=== PATIENT | male | born 1970 | race Hispanic/Latino ===

== ENCOUNTER 2018-04-29 12:58 | Emergency (ER) | payer OTHER ==
[2018-04-29] MEDS ORDERED: ONDANSETRON 4 MG/2 ML VIAL ONE (14:40)
[2018-04-29] MEDS ORDERED: NA CHLORIDE 0.9% 1,000 ML ONE (14:40)
[2018-04-29 15:35] LABS: Absolute Lymphocytes (CBC) 1.5 K/uL (0.7-4.9); Absolute Monocytes 0.5 K/uL (0.1-1.3); Absolute Neutrophil 4.8 K/uL (1.8-8.0); Basophils % 0.1 % (0-1.3); Eosinophils % 0.4 % (0-4.4); Hematocrit 45.1 % (39.6-49.0); Lymphocytes % 21.4 % (15.3-44.8); MCH 31.2 pg (27.0-35.0); MCV 93.1 fL (80-100); MPV 7.7 fL (7.6-11.3); Monocytes % 7.7 % (3.3-12.3); RBC Red Blood Cell Count 4.84 M/uL (4.33-5.43)
[2018-04-29 15:48] LABS: Urine Blood TRACE (NEG); Urine Glucose NEGATIVE (NEG); Urine Protein TRACE (NEG)
[2018-04-29 16:06] LABS: ALT/SGPT 37 U/L (12-78); AST/SGOT 21 U/L (15-37); Albumin 3.8 g/dL (3.4-5.0); Alkaline Phosphatase 91 U/L (45-117); BUN Blood Urea Nitrogen 13 mg/dL (7-18); Bicarbonate 29 mmol/L (21-32); Bilirubin Direct 0.4 mg/dL (0-0.2); Bilirubin Total 2.4 mg/dL (0.2-1.0); Glucose Level 107 mg/dL (74-106); Lipase 94 U/L (73-393); Protein, Total 7.6 g/dL (6.4-8.2); Sodium Level 140 mmol/L (136-145)
--- NOTE | 2018-04-29 16:26 | ER ---
Nurse's Notes [facility] Name: Gavin Hernandez Age: 47 yrs Sex: Male : 1970 Arrival Date: 04/29/2018 Time: 13:00 Bed 26 Private MD: Dayana Mcarthur Diagnosis: Gastroenteritis Presentation: 04/29 13:31 Presenting complaint: Patient states: N/V/D since yesterday. Transition of care: aj patient was not received from another setting of care. Onset of symptoms was April 28, 2018. Risk Assessment: Do you want to hurt yourself or someone else? Patient reports no desire to harm self or others. Initial Sepsis Screen: Does the patient meet any 2 criteria? No. Patient's initial sepsis screen is negative. Does the patient have a suspected source of infection? No. Patient's initial sepsis screen is negative. Care prior to arrival: None. 13:31 Method Of Arrival: Ambulatory 13:31 Acuity: CHRISTINA 3 aj Triage Assessment: 13:33 General: Appears in no apparent distress. comfortable, Behavior is calm, cooperative, aj appropriate for age. Pain: Complains of pain in abdomen. Neuro: Level of Consciousness is awake, alert, obeys commands, Oriented to person, place, time, situation, Appropriate for age. Respiratory: Airway is patent Respiratory effort is even, unlabored, Respiratory pattern is regular, symmetrical. GI: Reports diarrhea, nausea, vomiting. Derm: Skin is intact, is healthy with good turgor, Skin is pink, warm \T\ dry. normal. Historical: - Allergies: 13:33 No Known Allergies; aj - Home Meds: 13:33 unknown cholesterol med [Active]; aj - PMHx: 13:33 Hyperlipidemia; aj - PSHx: 13:33 None; aj - Immunization history:: Adult Immunizations up to date. - Social history:: Smoking status: Patient/guardian denies using tobacco. - Ebola Screening: : Patient negative for fever greater than or equal to 101.5 degrees Fahrenheit, and additional compatible Ebola Virus Disease symptoms Patient denies exposure to infectious person Patient denies travel to an Ebola-affected area in the 21 days before illness onset No symptoms or risks identified at this time. Screenin:47 Abuse screen: Denies threats or abuse. Nutritional screening: No deficits noted. tl3 Tuberculosis screening: No symptoms or risk factors identified. Fall Risk None identified. Assessment: 14:47 General: Appears uncomfortable, well groomed, well developed, well nourished, Behavior tl3 is calm, cooperative, appropriate for age. Pain: Complains of pain in abdomen. Neuro: No deficits noted. Level of Consciousness is awake, alert, obeys commands, Oriented to person, place, time, situation, Appropriate for age. Cardiovascular: Patient's skin is warm and dry. Respiratory: Airway is patent Respiratory effort is even, unlabored, Respiratory pattern is regular, symmetrical, Breath sounds are clear bilaterally. GI: Abdomen is round. GI: Reports diarrhea, nausea, vomiting, since yesterday. : No deficits noted. Urine is clear. EENT: No deficits noted. No signs and/or symptoms were reported regarding the EENT system. Derm: No deficits noted. No signs and/or symptoms reported regarding the dermatologic system. Musculoskeletal: No deficits noted. No signs and/or symptoms reported regarding the musculoskeletal system. 15:58 Reassessment: Patient appears in no apparent distress at this time. No changes from tl3 previously documented assessment. Patient and/or family updated on plan of care and expected duration. Pain level reassessed. Patient is alert, oriented x 3, equal unlabored respirations, skin warm/dry/pink. no needs at this time Patient states feeling better. Vital Signs: 13:33 BP 120 / 72; Pulse 91; Resp 16; Temp 99.4; Pulse Ox 97% on R/A; Weight 80.74 kg; Height aj 5 ft. 6 in. (167.64 cm); 14:47 BP 123 / 77; Pulse 90; Resp 18; Pulse Ox 96% on R/A; tl3 15:55 BP 115 / 82; Pulse 88; Resp 18; Pulse Ox 96% on R/A; mg2 16:37 BP 117 / 80; Pulse 85; Resp 17; Pulse Ox 100% on R/A; Pain 0/10; mg2 13:33 Body Mass Index 28.73 (80.74 kg, 167.64 cm) aj ED Course: 13:00 Patient arrived in ED. rg4 13:00 Dayana Mcarthur MD is Private Physician. rg4 13:32 Triage completed. aj 13:33 Arm band placed on left wrist. Patient placed in an exam room. aj 13:44 [facility] jr8 13:44 Pancho Cruz MD is Attending Physician. jr8 14:33 Amberly Cardoza, RN is Primary Nurse. tl3 14:47 Patient has correct armband on for positive identification. Bed in low position. Call tl3 light in reach. Side rails up X 1. Pulse ox on. NIBP on. 14:47 No provider procedures requiring assistance completed. Inserted saline lock: 20 gauge tl3 in right antecubital area, using aseptic technique. Blood collected. 16:24 Nurse Practitioner and/or Physician Lead Producer to see patient. Anton at bedside tl3 discussing POC Pt visited by. 16:25 Dayana Mcarthur MD is Referral Physician. jr8 16:36 IV discontinued, intact, bleeding controlled, No redness/swelling at site. Pressure mg2 dressing applied. Administered Medications: 14:46 Drug: NS 0.9% 1000 ml Route: IV; Rate: 1000 ml; Site: right antecubital; Delivery: tl3 Primary tubing; 15:59 Follow up: IV Status: Completed infusion; IV Intake: 1000ml tl3 14:46 Drug: Zofran 4 mg Route: IVP; Infused Over: 2 mins; Site: right antecubital; tl3 15:59 Follow up: Response: No adverse reaction tl3 Intake: 15:59 IV: 1000ml; Total: 1000ml. tl3 Outcome: 16:26 Discharge ordered by . jr8 16:36 Discharged to home ambulatory, with family. mg2 16:36 Condition: stable 16:36 Discharge instructions given to patient, family, Instructed on discharge instructions, follow up and referral plans. medication usage, Demonstrated understanding of instructions, follow-up care, medications, Prescriptions given X 2. 16:37 Patient left the ED. mg2 Signatures: Lisa Mcmahon RN Anton Bates PA PA jr8 Maria Luisa Pisano rg4 Amberly Cardoza, RN RN tl3 Heath Veras RN RN mg2
--- NOTE | 2018-04-29 16:26 | EDPHYS ---
Physician Documentation [facility] Name: Gavin Hernandez Age: 47 yrs Sex: Male : 1970 Arrival Date: 04/29/2018 Time: 13:00 Bed 26 Private MD: Dayana Mcarthur ED Physician Pancho Cruz HPI: 04/29 13:45 This 47 yrs old Male presents to ER via Ambulatory with complaints of jr8 Vomiting/Diarrhea, Abdominal Pain, Fever. 13:45 The patient presents to the emergency department with nausea, vomiting, diarrhea, jr8 abdominal pain. Onset: The symptoms/episode began/occurred acutely, yesterday. Possible causes: bad food exposure. The symptoms are aggravated by food , The symptoms are alleviated by nothing. Associated signs and symptoms: The patient has no apparent associated signs or symptoms. Severity of symptoms: At their worst the symptoms were moderate in the emergency department the symptoms are unchanged. The patient has not experienced similar symptoms in the past. The patient has not recently seen a physician. Stated that after lunch yesterday had sudden onset n/v/d with abdominal cramping . Historical: - Allergies: 13:33 No Known Allergies; aj - Home Meds: 13:33 unknown cholesterol med [Active]; aj - PMHx: 13:33 Hyperlipidemia; aj - PSHx: 13:33 None; aj - Immunization history:: Adult Immunizations up to date. - Social history:: Smoking status: Patient/guardian denies using tobacco. - Ebola Screening: : Patient negative for fever greater than or equal to 101.5 degrees Fahrenheit, and additional compatible Ebola Virus Disease symptoms Patient denies exposure to infectious person Patient denies travel to an Ebola-affected area in the 21 days before illness onset No symptoms or risks identified at this time. ROS: 16:25 Eyes: Negative for injury, pain, redness, and discharge, ENT: Negative for injury, jr8 pain, and discharge, Neck: Negative for injury, pain, and swelling, Cardiovascular: Negative for chest pain, palpitations, and edema, Respiratory: Negative for shortness of breath, cough, wheezing, and pleuritic chest pain, Back: Negative for injury and pain, MS/Extremity: Negative for injury and deformity, Skin: Negative for injury, rash, and discoloration, Neuro: Negative for headache, weakness, numbness, tingling, and seizure. 16:25 Abdomen/GI: Positive for nausea, vomiting, and diarrhea, abdominal cramps, Negative for abdominal distension, anorexia, dysphagia, hematemesis, black/tarry stool, rectal pain, rectal bleeding, bowel incontinence, flatulence. Exam: 16:25 Eyes: Pupils equal round and reactive to light, extra-ocular motions intact. Lids and jr8 lashes normal. Conjunctiva and sclera are non-icteric and not injected. Cornea within normal limits. Periorbital areas with no swelling, redness, or edema. ENT: Nares patent. No nasal discharge, no septal abnormalities noted. Tympanic membranes are normal and external auditory canals are clear. Oropharynx with no redness, swelling, or masses, exudates, or evidence of obstruction, uvula midline. Mucous membranes moist. Neck: Trachea midline, no thyromegaly or masses palpated, and no cervical lymphadenopathy. Supple, full range of motion without nuchal rigidity, or vertebral point tenderness. No Meningismus. Cardiovascular: Regular rate and rhythm with a normal S1 and S2. No gallops, murmurs, or rubs. Normal PMI, no JVD. No pulse deficits. Respiratory: Lungs have equal breath sounds bilaterally, clear to auscultation and percussion. No rales, rhonchi or wheezes noted. No increased work of breathing, no retractions or nasal flaring. Abdomen/GI: Soft, non-tender, with normal bowel sounds. No distension or tympany. No guarding or rebound. No evidence of tenderness throughout. Back: No spinal tenderness. No costovertebral tenderness. Full range of motion. Skin: Warm, dry with normal turgor. Normal color with no rashes, no lesions, and no evidence of cellulitis. MS/ Extremity: Pulses equal, no cyanosis. Neurovascular intact. Full, normal range of motion. Neuro: Awake and alert, GCS 15, oriented to person, place, time, and situation. Cranial nerves II-XII grossly intact. Motor strength 5/5 in all extremities. Sensory grossly intact. Cerebellar exam normal. Normal gait. Vital Signs: 13:33 BP 120 / 72; Pulse 91; Resp 16; Temp 99.4; Pulse Ox 97% on R/A; Weight 80.74 kg; Height aj 5 ft. 6 in. (167.64 cm); 14:47 BP 123 / 77; Pulse 90; Resp 18; Pulse Ox 96% on R/A; tl3 15:55 BP 115 / 82; Pulse 88; Resp 18; Pulse Ox 96% on R/A; mg2 16:37 BP 117 / 80; Pulse 85; Resp 17; Pulse Ox 100% on R/A; Pain 0/10; mg2 13:33 Body Mass Index 28.73 (80.74 kg, 167.64 cm) aj MDM: 13:44 Patient medically screened. [facility] 16:25 Data reviewed: vital signs, nurses notes, lab test result(s), and as a result, I will jr8 discharge patient. Data interpreted: Pulse oximetry: on room air is 96 %. Interpretation: normal. Counseling: I had a detailed discussion with the patient and/or guardian regarding: the historical points, exam findings, and any diagnostic results supporting the discharge/admit diagnosis, lab results, the need for outpatient follow up, a family practitioner, to return to the emergency department if symptoms worsen or persist or if there are any questions or concerns that arise at home. Response to treatment: the patient's symptoms have markedly improved after treatment, patient is well hydrated. 04/29 13:44 Order name: Basic Metabolic Panel [facility] 04/29 13:44 Order name: CBC with Diff [facility] 04/29 13:44 Order name: Creatinine for Radiology [facility] 04/29 13:44 Order name: Hepatic Function [facility] 04/29 13:44 Order name: Lipase [facility] 04/29 15:39 Order name: CBC with Automated Diff; Complete Time: 15:41 [facility] 04/29 13:44 Order name: IV Saline Lock; Complete Time: 14:33 [facility] 04/29 13:44 Order name: Labs collected and sent; Complete Time: 14:33 [facility] 04/29 15:51 Order name: Urine Dipstick-Ancillary; Complete Time: 16:01 [facility] 04/29 16:07 Order name: Basic Metabolic Panel; Complete Time: 16:17 [facility] 04/29 16:07 Order name: Liver (Hepatic) Function; Complete Time: 16:17 [facility] 04/29 16:07 Order name: Lipase; Complete Time: 16:17 EDMS Administered Medications: 14:46 Drug: NS 0.9% 1000 ml Route: IV; Rate: 1000 ml; Site: right antecubital; Delivery: tl3 Primary tubing; 15:59 Follow up: IV Status: Completed infusion; IV Intake: 1000ml tl3 14:46 Drug: Zofran 4 mg Route: IVP; Infused Over: 2 mins; Site: right antecubital; tl3 15:59 Follow up: Response: No adverse reaction tl3 Disposition: 16:51 Co-signature as Attending Physician, Pancho Cruz MD. rn Disposition: 04/29/18 16:26 Discharged to Home. Impression: Gastroenteritis. - Condition is Stable. - Discharge Instructions: Viral Gastroenteritis, Adult. - Prescriptions for Bentyl 20 mg Oral Tablet - take 1 tablet by ORAL route every 6 hours As needed; 20 tablet. Zofran 4 mg Oral Tablet - take 1 tablet by ORAL route every 12 hours As needed; 20 tablet. - Medication Reconciliation Form, Thank You Letter, Antibiotic Education, Prescription Opioid Use form. - Follow up: Dayana Mcarthur MD; When: 48 Hours; Reason: Recheck today's complaints, Continuance of care, Re-evaluation by your physician. - Problem is new. - Symptoms have improved. Signatures: Dispatcher [employer] Lisa Mcmullen, RN RN Pancho Eric MD MD rn Roszak, Josh, PA PA jr8 Amberly Cardoza RN RN tl3 Heath Veras RN RN mg2 Corrections: (The following items were deleted from the chart) 16:37 16:26 04/29/2018 16:26 Discharged to Home. Impression: Gastroenteritis. Condition is mg2 Stable. Forms are Medication Reconciliation Form, Thank You Letter, Antibiotic Education, Prescription Opioid Use. Follow up: Dayana Mcarthur; When: 48 Hours; Reason: Recheck today's complaints, Continuance of care, Re-evaluation by your physician. Problem is new. Symptoms have improved. jr8
== END 2018-04-29 16:37 | disposition home or self-care (01) ==
LOC: ER 12:58
DX: K52.9 Noninfective gastroenteritis and colitis, unspecified (principal)
CPT/HCPCS: 36415; 80048; 80076; 81003; 83690; 85025; 96361; 96374; 99284; J2405; J7030

== ENCOUNTER 2021-11-04 16:02 | Emergency (ER) | payer OTHER ==
--- OUTSIDE RECORDS SUMMARY | 2021-11-04 16:06 | XMS REPORT | Continuity of Care Document ---
:1970 Author Organization [facility] t Address [address] [place] [address] Care Team Providers Name Role Phone Pcp, Does Not Have A Primary Care Physician Fiordaliza Mcarthur Attending Clinician Unavailable RIDDLE Attending Clinician Unavailable [place] ACNP Attending Clinician Skylar MCDANIEL Attending Clinician Unavailable Skylar Silva Attending Clinician Doctor Unassigned, Name Attending Clinician Unavailable Skylar MCDANIEL Admitting Clinician Unavailable Payers Payer Name Policy Type Policy Number Effective Date Expiration Date [facility] [id number] 2016 CHOICE 00:00:00 Problems Condition Condition Condition Status Onset Resolution Last Treating Co mments Source Name Details Category Date Date Treatment Clinician Date Left groin Left groin Disease Active U nivers pain pain 1-14 ity of 00:00: [address] No known No known Disease Unive rs active active ity of problems problems [facility] Allergies, Adverse Reactions, Alerts Allergy Allergy Status Severity Reaction(s) Onset Inactive Treating Comm ents Source Name Type Date Date Clinician NO KNOWN Drug Active Univers ALLERGIE Class ity of S [facility] Social History Social Habit Start Date Stop Date Quantity Comments Source Exposure to Not sure [facility] SARS-CoV-2 (event) Medica l Branch Sex Assigned At [birth year] [facility] 00:00:00 00:00:00 Medical Branch Smoking Status Start Date Stop Date Source Unknown if ever smoked [facility] Medications Ordered Filled Start Stop Current Ordering Indication Dosage Frequency Signature Comments Components Source Medication Medication Date Date Medication? Clinician (SIG) Name Name ibuprofen No 600mg 600 mg, Uni vers (IBU) 08-25 Oral, ity of tablet 600 03:30: 02:50 ONCE, 1 Alexsander as mg 00 :00 dose, On Medical Fri Branch 08/24/21 at 2130, RAMIRO traMADoL 2020-08- No 4647 50mg Take 1 Univer s (ULTRAM) 50 2-08 12-16 tablet by it y of mg tablet 00:00: 05:59 mouth [place] 00 :00 every 6 Medical (six) Branch hours as needed for Pain (scale 7-10) for up to 7 days. Indication s: acute pain Triamcinolo Triamcinolo Yes Na Mcarthur [address] [facility] ne ne 01-30 applicatio [facility] - Acetonide Acetonide 00:00: n to Mem oria 00 affected l area Outpati ent Clinics traMADOL 2016-08 Yes 50mg Take 1 Univers (ULTRAM) 50 2-13 tablet by ity of mg tablet 00:00: mouth [place] 00 every 6 Medical (six) Branch hours as needed for Pain (scale 7-10). traMADOL 2016-08 Yes 50mg Take 1 Univers (ULTRAM) 50 2-13 tablet by ity of mg tablet 00:00: mouth [place] 00 every 6 Medical (six) Branch hours as needed for Pain (scale 7-10). traMADOL 2016-08 Yes 50mg Take 1 Univers (ULTRAM) 50 2-13 tablet by ity of mg tablet 00:00: mouth [place] 00 every 6 Medical (six) Branch hours as needed for Pain (scale 7-10). cyclobenzap Yes 10mg Take 1 Univ ers rine 8-01 tablet by ity of (FLEXERIL) 00:00[place] 10 mg 00 (three) Medical tablet times Branch daily. ibuprofen Yes 600mg Take 1 Unive rs (MOTRIN) 8-01 tablet by ity of 600 mg 00:00: mouth [place] tablet 00 every 6 Medical (six) Branch hours as needed for Pain (scale 4-6). cyclobenzap 0 Yes 10mg Take 1 Univ ers rine 8-01 tablet by ity of (FLEXERIL) 00:00[place] 10 mg 00 (three) Medical tablet times Branch daily. ibuprofen 0 Yes 600mg Take 1 Unive rs (MOTRIN) 8-01 tablet by ity of 600 mg 00:00: mouth [place] tablet 00 every 6 Medical (six) Branch hours as needed for Pain (scale 4-6). cyclobenzap 0 Yes 10mg Take 1 Univ ers rine 8-01 tablet by ity of (FLEXERIL) 00:00: mouth [place] 10 mg 00 (three) Medical tablet times Branch daily. ibuprofen 0 Yes 600mg Take 1 Unive rs (MOTRIN) 8-01 tablet by ity of 600 mg 00:00: mouth [place] tablet 00 every 6 Medical (six) Branch hours as needed for Pain (scale 4-6). Simvastatin Simvastatin Yes Na Mcarthur TAKE ONE [facility] TABLET BY [facility] - MOUTH ONCE Memoria DAILY l [facility] ent Clinics Claritin Claritin Yes Na Mcarthur [address] [facility] Flonase Flonase Yes Na Mcarthur [address] [facility] each [facility] - nostril Memoria l [facility]ics Azelastine Azelastine Yes Na Mcarthur [address] [facility] HCl HCl into [facility] - affected Memoria eye [facility] ent [facility] Simvastatin Simvastatin Yes Na Mcarthur TAKE ONE [facility] TABLET BY [facility] - MOUTH ONCE Memoria DAILY l [facility] ent Clinics Claritin Claritin Yes Na Mcarthur [address] [facility]ics Immunizations Ordered Filled Immunization Date Status Comments [facility] e Immunization Name Name Afluria single dose Afluria single dose 2019-04-[address] [facility] 00:00[facility]00 [facility] Vital Signs Vital Name Observation Time Observation Value Comments Source Heart rate 2021-08-25 02:43:00 97 /min [facility] Medical Branch Oxygen saturation in 2021-08-25 02:43:00 99 /min [facility] Arterial blood by [facility] Pulse oximetry Branch Systolic blood 2021-08-25 02:31:00 137 mm[Hg] Univer sity of pressure [facility] Diastolic blood 2021-08-25 02:31:00 89 mm[Hg] Unive rsity of pressure [facility] Body temperature 2021-08-25 02:08:00 37.28 [facility] Respiratory rate 2021-08-25 02:08:00 18 /min Univ ersity of [facility] Body height 2021-08-25 02:08:00 167.6 cm Universi ty of [facility] Body weight 2021-08-25 02:08:00 83.008 kg Universi ty of [facility] BMI 2021-08-25 02:08:00 29.54 kg/m2 Universi ty of [facility] Respiratory rate 2021-07-19 00:31:00 18 /min Univ ersity of [facility] Body height 2021-07-19 00:31:00 165.1 cm Universi ty of [facility] Body weight 2021-07-19 00:31:00 80.74 kg Universi ty of [facility] BMI 2021-07-19 00:31:00 29.62 kg/m2 [facility]i ty [facility] [place] [facility] Oxygen saturation in 2021-07-19 00:31:00 99 /min [facility] Arterial blood by [facility] Pulse oximetry Branch Systolic blood 2021-07-19 00:31:00 156 mm[Hg] Univer sity of [facility] Diastolic blood 2021-07-19 00:31:00 100 mm[Hg] Unive rsity of [facility] Heart rate 2021-07-19 00:31:00 104 /min Universi ty of [facility] Body temperature 2021-07-19 00:31:00 36.72 [facility] Procedures Procedure Date / Time Performed Performing Clinician Sour e CONSENT/REFUSAL FOR 2021-08-25 02:00:55 [facility], [facility] Branch TREATMENT XR FEMUR 2 VW LEFT 2021-07-19 01:10:42 Oneal Mcadniel Universi ty [facility] XR PELVIS <3 VW 2021-07-19 01:10:42 Oneal [facility] CONSENT/REFUSAL FOR 2021-07-19 00:20:10 Doctor Unassigned, No [facility] AND Name Medical Branch TREATMENT NOTICE OF PRIVACY 2021-07-19 00:19:49 Doctor Unassigned, No Univ [facility] PRACTICES Name Medical Branch Encounters Start End Encounter Admission Attending Care Care Encounter Source Date/Time Date/Time Type Type Clinicians Facility Department ID 2021-09-11 Outpatient Mcarthur, Na STLMLC [facility] [id number] [facility] 09:22[facility]01 [facility] 2021-09-05 Outpatient Mcarthur, Na STLMLC STLMLC [id number] [facility] 14:38:51 [facility] 2021-09-05 Outpatient Mcarthur, Na STLMLC STLMLC [id number] 14:30:53 [facility] 2021-09-05 Outpatient Mcarthur, Na STLMLC STLMLC [id number] [facility] 14:30:06 [facility] 2021-09-05 Outpatient Mcarthur, Na STLMLC STLMLC [id number] [facility] 13:47:07 [id number] [facility] 2021-09-05 Outpatient Mcarthur, Na STLMLC STLMLC [id number] [facility] 13:21:01 [id number] [facility] 2021-09-05 Outpatient Mcarthur, Na STLMLC STLMLC [id number] [facility] [address] 12:47:23 [id number] [facility] 2021-09-05 Outpatient Mcarthur, Na STLMLC STLMLC [id number] [facility] 12:46:31 [id number] [facility] 2021-09-05 Outpatient Mcarthur, Na STLMLC STLMLC [id number] [facility] 11:27:28 [id number] [facility] 2021-09-05 Outpatient Mcarthur, Na STLMLC STLMLC [id number] 11:17:23 [id number] [facility] 2021-09-242021-09-24 ambulatory [facility]LMLC [facility] [id number] [facility] 2021-09-10 2021-09-10 ambulatory [facility]LMLC [facility] [id number] [facility] 2021-08-27 2021-08-27 ambulatory [facility]MLC [facility] [id number] [facility] 2021-08-24 2021-08-24 Emergency X RIDDLE, [facility] ERT [id number] Univers 20:10:00 22:00:00 GIOVANY it y [facility] 2021-08-24 2021-08-24 Emergency [place], [facility] [id number] Univers 20:10:00 22:00:00 Giovany ESCOTO [id number] [facility] [id number] [facility] [id number] [address] 2021-08-24 2021-08-24 ambulatory STLMLC [facility] [id number] [facility] 2021-08-15 2021-08-15 ambulatory [facility]LMLC [facility] [id number] [facility] 2021-08-14 2021-08-14 ambulatory [facility]LMLC [facility] [id number] [facility] 2021-07-18 2021-07-18 Emergency X VIOLETA, [facility] ERT [id number] Univers 18:33:00 22:13:00 ONEAL ity [facility] 2021-07-18 2021-07-18 [facility] [id number] Univers 18:33:00 22:13:00 Oneal ESCOTO [id number] [id number] [facility] [phone] [facility] 084 Branch 2021-07-18 2021-07-18 Orders Doctor TANK [id number] Univers 00:00:00 00:00:00 Only Unassigned, JOSY [id number] ity of [place] [facility] [id number] [facility] [id number] [facility] 009 Branch 2021-06-08 2021-06-08 Outpatient [facility]LMLC [facility] [id number] [facility] 2021-02-16 2021-02-16 Outpatient [facility] [id number] [facility] 2021-02-08 2021-02-08 Outpatient [facility]C [facility] [id number] [facility] 2020-11-09 2020-11-09 Outpatient STLC [facility] [id number] [facility] 2020-02-01 2020-02-01 [facility] [id number] [address] 22:23:00 22:23:00 [place] [employer] [facility] - [facility] Medicine Outpati ent Clinics 2020-01-31 2020-01-31 [facility] [id number] 16:20:00 16:20:00 [place] [employer] Luke [facility] - [facility] Medicine Outpati ent Clinics 2020-01-31 2020-01-31 [facility] [id number] 15:16:00 15:16:00 [place] [employer] Luke s - Drive [facility] Medicine Outpati ent Clinics 2019-07-27 2019-07-27 [facility] [id number] 15:20:00 15:20:00 [place] [employer] s - [address] [facility] Medicine Outpati ent Clinics 2019-04-26 2019-04-26 [facility] [id number] 15:20:00 15:20:[address] Luke [facility] - [address] [facility] 2018-11-04 2018-11-04 Outpatient Timi Peter [id number] [facility] 15:15:00 15:15:00 t [facility] ent Clinics Results This patient has no known results.
[2021-11-04] MEDS ORDERED: KETOROLAC 30 MG/ML INJ ONE (17:44)
[2021-11-04] MEDS ORDERED: NA CHLORIDE 0.9% 1,000 ML ONE (17:44)
[2021-11-04 17:52] LABS: Urine Blood Trace-intact (Negative); Urine Glucose Negative (Negative); Urine Protein Negative (Negative); Urine Specific Gravity 1.025 (1.005-1.030); Urine pH 6.5 (5.0-7.0)
[2021-11-04 17:59] LABS: Absolute Lymphocytes (CBC) 2.1 K/uL (0.7-4.9); Hematocrit 44.7 % (39.6-49.0); Lymphocytes % 33.9 % (15.3-44.8); MPV 7.8 fL (7.6-11.3); RBC Red Blood Cell Count 4.83 M/uL (4.33-5.43)
[2021-11-04 18:04] LABS: Urine Bacteria <20 /HPF (NONE SEEN); Urine RBC <5 /HPF (NONE SEEN)
--- NOTE | 2021-11-04 18:13 | RAD REPORT ---
EXAM DESCRIPTION: CT - Abdomen Pelvis W Contrast - 11/04/2021 5:56 pm CLINICAL HISTORY: Abdominal pain/left groin pain COMPARISON: 2013 TECHNIQUE: Computed axial tomography of the abdomen pelvis was obtained. 100 cc Isovue-300 was admin istered intravenously. Oral contrast was not requested which limits evaluation of bowel. All CT scans are performed using dose optimization technique as appropriate and may include automated exposure control or mA/KV adjustment according to patient size. FINDINGS: The liver, spleen, pancreas, adrenal and kidneys appear unremarkable. There is no evidence of diverticulitis. Normal appendix. Small right inguinal hernia. Large left inguinal hernia contains fat Small umbilical hernia IMPRESSION: Large left inguinal hernia
[2021-11-04 18:15] LABS: ALT/SGPT 44 U/L (12-78); AST/SGOT 23 U/L (15-37); Albumin 3.9 g/dL (3.4-5.0); Alkaline Phosphatase 108 U/L (45-117); BUN Blood Urea Nitrogen 13 mg/dL (7-18); Bicarbonate 27 mmol/L (21-32); Bilirubin Total 1.5 mg/dL (0.2-1.0); Glucose Level 101 mg/dL (74-106); Lipase 113 U/L (73-393); Potassium 3.9 mmol/L (3.5-5.1); Protein, Total 7.6 g/dL (6.4-8.2); Sodium Level 140 mmol/L (136-145)
--- NOTE | 2021-11-04 18:39 | RAD REPORT ---
EXAM DESCRIPTION: US - Scrotum Testicles - 11/04/2021 5:28 pm CLINICAL HISTORY: Testicular pain COMPARISON: None FINDINGS: Right testicle measures5.2 x 1.8 x 2.4centimeters. Echotexture is homogeneous. Normal bloo d flow Left testicle measures 4.3 x 2.5 x 3.3 centimeters. Echotexture is homogeneous. Normal blood flow The epididymides are normal in size and echotexture. Normal blood flow is seen. Small to moderate right and small left hydroceles Large left inguinal hernia containing fat IMPRESSION: Large left inguinal hernia containing fat Small to moderate right and small left hydroceles
--- NOTE | 2021-11-04 19:06 | EDPHYS ---
Physician Documentation [facility] Name: Gavin Hernandez Age: 50 yrs Sex: Male : 1970 Arrival Date: 11/04/2021 Time: 16:05 Bed 16 Private MD: ED Physician Shekhar Hannah HPI: 11/04 16:50 This 50 yrs old Male presents to ER via Ambulatory with complaints of Groin cp Pain. 16:50 The patient presents with swelling, of both inguinal areas, tenderness, of both cp inguinal areas. Onset: The symptoms/episode began/occurred 2 month(s) ago. Associated signs and symptoms: Pertinent positives: right testicle pain, Pertinent negatives: constipation, diarrhea, dysuria, fever, vomiting. Severity of symptoms: in the emergency department the symptoms are unchanged, despite home interventions. 16:50 Spouse translating during interview. Reports increasing pain and swelling to bilateral cp groin area with left worse than right since August. Patient denies injury and/or lifting heavy object prior to pain. Patient's work requires frequent and/or heavy lifting. Historical: - Allergies: 16:20 No Known Allergies; ab2 - PMHx: 16:20 Hyperlipidemia; ab2 - PSHx: 16:20 None; ab2 - Immunization history:: Adult Immunizations up to date. - Social history:: Smoking status: Patient denies any tobacco usage or history of. ROS: 17:00 Constitutional: Negative for body aches, chills, fever, poor PO intake. cp 17:00 Eyes: Negative for injury, pain, redness, and discharge. cp 17:00 ENT: Negative for drainage from ear(s), ear pain, sore throat, difficulty swallowing, difficulty handling secretions. 17:00 Cardiovascular: Negative for chest pain. 17:00 Respiratory: Negative for cough, shortness of breath, wheezing. 17:00 Abdomen/GI: Negative for abdominal pain, nausea, vomiting, and diarrhea. 17:00 Back: Negative for pain at rest, pain with movement, radiated pain. 17:00 : Positive for testicular pain swelling and pain bilateral groin area, Negative for urinary symptoms. 17:00 Neuro: Negative for altered mental status, headache, numbness, weakness. 17:00 All other systems are negative. Exam: 17:05 Constitutional: The patient appears in no acute distress, alert, awake, comfortable, cp non-toxic, well developed, well nourished. 17:05 Head/Face: Normocephalic, atraumatic. cp 17:05 Eyes: Periorbital structures: appear normal, Conjunctiva: normal, no exudate, no injection, Sclera: no appreciated abnormality, Lids and lashes: appear normal, bilaterally. 17:05 ENT: External ear(s): are unremarkable, Nose: is normal, Mouth: is normal. 17:05 Neck: ROM/movement: is normal, is supple, without pain, no range of motions limitations. 17:05 Chest/axilla: Inspection: normal. 17:05 Cardiovascular: Rate: normal, Rhythm: regular. 17:05 Respiratory: the patient does not display signs of respiratory distress, Respirations: normal, no use of accessory muscles, no retractions, labored breathing, is not present, Breath sounds: are clear throughout, no decreased breath sounds, no stridor, no wheezing. 17:05 Abdomen/GI: Inspection: abdomen appears normal, Bowel sounds: active, all quadrants, Palpation: abdomen is soft and non-tender, in all quadrants. 17:05 : Male external genitalia: swelling, is noted in both inguinal areas, tenderness, of the right testicle is noted, is palpated in both inguinal areas, that is mild, Sexual behavior: the patient is sexually active, and reports a single partner. 17:05 Skin: cellulitis, is not appreciated, no rash present. Vital Signs: 16:17 BP 131 / 91; Pulse 87; Resp 17; Temp 98.1(TE); Pulse Ox 99% on R/A; Weight 83.01 kg; ab2 Height 5 ft. 6 in. (167.64 cm); Pain 10/10; 17:30 BP 141 / 85; Pulse 85; Resp 17; Temp 98.1; Pulse Ox 99% ; bp 18:30 BP 129 / 88; Pulse 82; Resp 16; Pulse Ox 99% ; bp 16:17 Body Mass Index 29.54 (83.01 kg, 167.64 cm) ab2 MDM: 16:30 Patient medically screened. cp 17:00 Differential diagnosis: nonspecific abdominal pain, UTI, urinary retention, cp prostatitis, urethritis, hernia, incarcerated hernia, testicular torsion. 19:05 Data reviewed: vital signs, nurses notes, lab test result(s), radiologic studies, CT cp scan, ultrasound. 19:05 Counseling: I had a detailed discussion with the patient and/or guardian regarding: the cp historical points, exam findings, and any diagnostic results supporting the discharge/admit diagnosis, lab results, radiology results, the need for outpatient follow up, for definitive care, a general surgeon, to return to the emergency department if symptoms worsen or persist or if there are any questions or concerns that arise at home. ED course: VSS. Pain improved with meds. Discussed radiology results and need for f/u with general surgery for hernia repair. Spouse and patient voiced understanding. Will discharge to home for continued monitoring. 11/04 16:44 Order name: CBC with Diff; Complete Time: 18:29 11/04 18:30 Interpretation: Reviewed. 11/04 16:44 Order name: CMP; Complete Time: 18:29 11/04 18:29 Interpretation: Normal except: BILIT 1.5; GLOB 3.7. 11/04 16:44 Order name: Lipase; Complete Time: 18:29 cp 11/04 16:44 Order name: Urine Microscopic Only; Complete Time: 18:29 cp 11/04 18:30 Interpretation: Reviewed. 11/04 16:44 Order name: CT Abd/Pelvis - IV Contrast Only; Complete Time: 18:29 11/04 18:30 Interpretation: Report reviewed. 11/04 17:52 Order name: Urine Dipstick-Ancillary; Complete Time: 18:29 EDKY 11/04 18:29 Interpretation: Normal except: UBLD Trace-intact. 11/04 16:44 Order name: IV Saline Lock; Complete Time: 17:57 cp 11/04 16:44 Order name: Labs collected and sent; Complete Time: 17:57 11/04 16:44 Order name: Urine Dipstick-Ancillary (obtain specimen); Complete Time: 17:57 11/04 16:44 Order name: US Scrotum Testicles; Complete Time: 18:48 cp Administered Medications: 17:30 Drug: Ketorolac 30 mg Route: IVP; Site: left antecubital; bp 19:08 Follow up: Response: Pain is decreased bp 17:30 Drug: NS 0.9% 1000 ml Route: IV; Rate: 1 bolus; Site: left antecubital; bp Disposition Summary: 11/04/21 19:06 Discharge Ordered Location: Home cp Problem: new cp Symptoms: have improved cp Condition: Stable cp Diagnosis - Bilateral inguinal hernia, without obstruction or gangrene, not specified as cp recurrent Followup: cp - With: Atul Abraham MD - When: 2 - 3 days - Reason: Recheck today's complaints Followup: cp - With: Sunday Vargas MD - When: 2 - 3 days - Reason: Recheck today's complaints Discharge Instructions: - Discharge Summary Sheet cp - Inguinal Hernia, Adult cp Forms: - Medication Reconciliation Form cp - Thank You Letter cp - Antibiotic Education cp - Prescription Opioid Use cp Prescriptions: - Ultracet 37.5-325 mg Oral Tablet - take 1 tablet by ORAL route every 6 hours - for up to 5 days; do not exceed 8 cp tablets per day.; 20 tablet; Refills: 0, Product Selection Permitted Addendum: 11/07/2021 07:17 Co-signature as Attending Physician, Shekhar Hannah MD I agree with the assessment and c matos plan of care. Signatures: Dispatcher [employer] Shekhar Serna MD MD cha Page, Corey, PA PA cp Samuel Bernal, RN RN Gilles Rivera2 Corrections: (The following items were deleted from the chart) 11/04 18:29 18:29 Reviewed. cp cp
--- NOTE | 2021-11-04 19:06 | ER ---
Nurse's Notes [facility] Name: Gavin Hernandez Age: 50 yrs Sex: Male : 1970 Arrival Date: 11/04/2021 Time: 16:05 Bed 16 Private MD: Diagnosis: Bilateral inguinal hernia, without obstruction or gangrene, not specified as recurrent Presentation: 11/04 16:17 Chief complaint: Spouse and/or significant other states: "He has a lump on the left ab2 groin since Aug, and now the right groin has pressure. Im afraid its going to bust.". Coronavirus screen: Vaccine status: Patient reports receiving the 2nd dose of the covid vaccine. Client denies travel out of the [place] in the last 14 days. At this time, the client does not indicate any symptoms associated with coronavirus-19. Ebola Screen: Patient negative for fever greater than or equal to 101.5 degrees Fahrenheit, and additional compatible Ebola Virus Disease symptoms Patient denies exposure to infectious person. Patient denies travel to an Ebola-affected area in the 21 days before illness onset. No symptoms or risks identified at this time. Initial Sepsis Screen: Does the patient meet any 2 criteria? No. Patient's initial sepsis screen is negative. Does the patient have a suspected source of infection? No. Patient's initial sepsis screen is negative. Risk Assessment: Do you want to hurt yourself or someone else? Patient reports no desire to harm self or others. Onset of symptoms is unknown. 16:17 Method Of Arrival: Ambulatory ab2 16:17 Acuity: CHRISTINA 3 ab2 Triage Assessment: 16:19 General: Appears in no apparent distress. uncomfortable, Behavior is calm, cooperative, ab2 appropriate for age. Pain: Complains of pain in right leg and left leg. Derm: Parent/caregiver reports the patient having Lump on left groin. Historical: - Allergies: 16:20 No Known Allergies; ab2 - PMHx: 16:20 Hyperlipidemia; ab2 - PSHx: 16:20 None; ab2 - Immunization history:: Adult Immunizations up to date. - Social history:: Smoking status: Patient denies any tobacco usage or history of. Screenin:30 Abuse screen: Denies threats or abuse. Denies injuries from another. Nutritional bp screening: No deficits noted. Tuberculosis screening: No symptoms or risk factors identified. Fall Risk None identified. Assessment: 16:20 General: SEE TRIAGE NOTE. bp 17:55 Reassessment: No changes from previously documented assessment. Patient and/or family bp updated on plan of care and expected duration. Pain level reassessed. PT TO RADIOLOGY. 19:03 Reassessment: No changes from previously documented assessment. Patient and/or family bp updated on plan of care and expected duration. Pain level reassessed. U/S COMPLETE. Vital Signs: 16:17 BP 131 / 91; Pulse 87; Resp 17; Temp 98.1(TE); Pulse Ox 99% on R/A; Weight 83.01 kg; ab2 Height 5 ft. 6 in. (167.64 cm); Pain 10/10; 17:30 BP 141 / 85; Pulse 85; Resp 17; Temp 98.1; Pulse Ox 99% ; bp 18:30 BP 129 / 88; Pulse 82; Resp 16; Pulse Ox 99% ; bp 16:17 Body Mass Index 29.54 (83.01 kg, 167.64 cm) ab2 ED Course: 16:05 Patient arrived in ED. mr 16:19 Triage completed. ab2 16:19 Arm band placed on right wrist. ab2 16:25 Samuel Bernal, TERELL is Primary Nurse. bp 16:27 Shekhar Daugherty PA is PHCP. cp 16:27 Shekhar Hannah MD is Attending Physician. cp 17:30 US Scrotum Testicles In Process Unspecified. EDMS 17:30 Patient has correct armband on for positive identification. Bed in low position. Call bp light in reach. Side rails up X2. Adult w/ patient. 17:30 Inserted saline lock: 20 gauge in left antecubital area, using aseptic technique. Blood bp collected. 17:57 CT Abd/Pelvis - IV Contrast Only Sent. bp 17:58 CT Abd/Pelvis - IV Contrast Only In Process Unspecified. EDMS 19:05 Atul Abraham MD is Referral Physician. cp 19:05 Referral Physician role handed off by Atul Abraham MD cp 19:05 Sunday Vargas MD is Referral Physician. cp 19:16 Primary Nurse role handed off by Samuel Bernal RN mw2 19:28 O'Christie, Marianne, RN is Primary Nurse. arelis Administered Medications: 17:30 Drug: Ketorolac 30 mg Route: IVP; Site: left antecubital; bp 19:08 Follow up: Response: Pain is decreased bp 17:30 Drug: NS 0.9% 1000 ml Route: IV; Rate: 1 bolus; Site: left antecubital; bp Outcome: 19:06 Discharge ordered by . eduardo 20:06 Patient left the ED. ab2 Signatures: Dispatcher [employer] EDIA Ledbetter Kasia Shekhar Hebert PA PA Samuel Lawrence, RN RN Oz Stoddard mw2 Marianne Urias RN RN Gilles Floyd ab2
[2021-11-04 20:27] VITALS: TEMP 98.1; O2SAT 99
[2021-11-04 20:30] VITALS: BP 129/88
== END 2021-11-04 20:06 | disposition home or self-care (01) ==
LOC: ER 16:02
DX: K40.20 Bilateral inguinal hernia, without obstruction or gangrene, not specified as recurrent (principal); E78.5 Hyperlipidemia, unspecified
CPT/HCPCS: 85025; 36415; 82565; 83690; 80053; 74177; 76870; 96374; 99284; Q9967; J7030; 81003; 81015

== ENCOUNTER 2021-11-26 08:47 | Day surgery (SDC) | payer OTHER ==
[2021-11-26] MEDS ORDERED: Ringers Lactate 1,000 ML IV ONE (09:06)
[2021-11-26] MEDS ORDERED: CEFAZOLIN SODIUM 1 GM/VIAL ONE (09:06)
--- NOTE | 2021-11-26 09:08 | RAD REPORT ---
EXAM DESCRIPTION: Malena Ochoa (2 Views)11/26/2021 8:47 am CLINICAL HISTORY: Preop for hernia repair COMPARISON: 2016 FINDINGS: The lungs appear clear of acute infiltrate. The heart is normal size IMPRESSION: No acute abnormalities displayed
[2021-11-26] MEDS ORDERED: FENTANYL CITR 100 MCG/2 ML ONE (09:29)
[2021-11-26] MEDS ORDERED: propofoL 200 MG/20 ML VIAL IV ONE (09:30)
[2021-11-26] MEDS ORDERED: LIDOCAINE 2% MPF 5 ML VIAL ONE (09:30)
[2021-11-26] MEDS ORDERED: ONDANSETRON 4 MG/2 ML VIAL ONE (09:30)
[2021-11-26] MEDS ORDERED: MIDAZOLAM HCL 2 MG/2 ML INJ ONE (09:30)
[2021-11-26] MEDS ORDERED: ROCURONIUM 50 MG/5 ML VIAL IV ONE (09:32)
[2021-11-26] MEDS ORDERED: GLYCOPYRROLATE 0.2 MG/ML SYR ONE (09:34)
[2021-11-26] MEDS ORDERED: NEOSTIGMINE 1 MG/ML -5 ML ONE (09:35)
[2021-11-26] MEDS ORDERED: KETOROLAC 30 MG/ML INJ ONE (10:51)
[2021-11-26] MEDS ORDERED: dexAMETHasone 10 MG/ML VIAL ONE (10:51)
--- NOTE | 2021-11-26 11:11 | P.BOP ---
Preoperative diagnosis: Bilateral tender inguinal hernias Postoperative diagnosis: same Primary procedure: 1. Laparoscopic repair of Right inguinal hernia with mesh Secondary procedure: 2. Laparoscopic repair of Left inguinal hernia with mesh Clinical Geneticist: Amita Simpson) Estimated blood loss: <10cc Specimen: none Findings: as above Anesthesia: General Complications: None Drain(s): Other (3d mesh bilateral) Transferred to: Recovery Room Condition: Good
[2021-11-26] MEDS ORDERED: HYDROMORPHONE HCL 1 MG/ML INJ ONE (11:48)
[2021-11-26] MEDS ORDERED: CODEINE 30MG/APAP 300MG TAB PO ONE (12:29)
[2021-11-26] MEDS ORDERED: CODEINE 30MG/APAP 300MG TAB ONE (12:32)
[2021-11-26 12:44] VITALS: BP 121/69; TEMP 96.4; O2SAT 95
--- NOTE | 2021-11-26 13:34 | OP ---
Date of Procedure: 11/26/2021 Surgeon: Atul Abraham MD Automation Manager: VANESSA Garza. Preoperative Diagnosis: Bilateral tender inguinal hernias. Postoperative Diagnosis: Bilateral tender inguinal hernias. Procedures: 1.Laparoscopic repair of right inguinal hernia with mesh. 2.Laparoscopic repair of left inguinal hernia with mesh. Estimated Blood Loss: Less than 10 cc. Anesthesia: General plus local. Implant: 3D mesh bilateral. Indication: This is the case of a male, who comes to us with tender bilateral inguinal hernias. Nathan efits, alternatives, and risks of repair fully explained, which include, but not limited to infection , bleeding, damage to adjacent structures, anesthesia complication, chronic pain, chronic numbness, r ecurrence, NC, and even . He also understands this may not relieve any symptoms. He might need more than one surgical intervention. He also understands we will use mesh in that case with the pro s and cons of mesh fully explained to the patient and after all the questions were answered to his sa tisfaction, he signed a consent. Procedure In Detail: The patient was brought to the operating room, placed in supine position. Anes thesia was done without complication. Abdominal area was prepped and draped in the usual sterile fas hion. Marcaine 0.5% was injected for local anesthetic followed by sharp incision of the skin in the infraumbilical region. Incision was carried down until we found the anterior rectus sheath, which wa s opened on the right side and muscle retracted laterally to expose the posterior rectus sheath. The extraperitoneal space was gently developed with the help of blunt dissection and the space maker bal loon tip trocar placed in that area directed towards the pubis symphysis under direct visualization w ith the scope. The balloon was inflated and then removed after deflation and then the area created w as inflated. This allowed me to put a trocar back and have a 5 mm trocar just above the pubic symphy sis and a 5 mm trocar between the first and the second one. The preperitoneal space was further deve loped by exposing the inferior epigastric vessels keeping them anterior. Gigi ligament was dissect ed laterally to the junction with the iliac veins. The dissection continued inferiorly to the iliopu bic tract avoiding damage to the femoral branch of the genitofemoral nerve and lateral femoral cutane ous nerve. The cord structures were visualized, carefully skeletonized. The hernia was identified, reduced into the peritoneal cavity under direct visualization. After that, we proceeded to go on the left side and once again keeping the epigastric vessels anteriorly, we dissected the area. Gigi l igament was dissected laterally to the junction with the iliac veins and the dissection continued inf eriorly to the iliopubic tract avoiding damage to the femoral branch of the genitofemoral nerve and l ateral femoral cutaneous nerve. The cord structures were skeletonized. Once again, the hernia sac w as identified. Left side is bigger than the right side. Carefully, the hernia sac was reduced into the peritoneal cavity. At that moment, I proceeded to introduce a mesh through the mesh and the area rolled it through the trocar site and working in place to complete direct and indirect spaces. The mesh was secured with a SorbaFix lateral and superior to the iliopubic tract and inferior medial to t he Gigi ligament. After that, we went to the opposite side. Once again, we introduced the mesh th rough the mesh in that region to cover direct and indirect spaces. The mesh was secured in place onc e again with SorbaFix lateral and superior to the iliopubic tract and inferior medial to the Gigi l igament. We inspected both areas. No bleeding. At that moment, I removed the insufflation and whil e holding the mesh in place, we proceeded to allow the air to escape under direct visualization. The anterior rectus sheath was closed with #1 Vicryl and the skin was closed with 3-0 chromic and Steri- Strips on top. Sponge count and instrument counts correct at the end of the case. At the end of the case, testicles were in the scrotum. The patient was sent to recovery in stable condi tion. CRISTINO/GENA Voice ID: [id number] Report ID: [id number]
--- NOTE | 2021-11-26 13:34 | DS ---
Date of Discharge: 11/26/2021 Diagnosis: Bilateral tender inguinal hernias. Procedure: Laparoscopic repair of right and left inguinal hernia with mesh. Disposition: Home. Activity: As tolerated. No heavy lifting. Plan: Follow up in my office in 1 week. Call for appointment at [phone]. Keep area dry for 48 maribel rs, then may shower. Keep Steri-Strip intact. Cold compress to bilateral inguinal regions for the n ext 24 hours. CRISTINO/GENA Voice ID: [id number] Report ID: [id number]
== END 2021-11-26 12:55 | disposition home or self-care (01) ==
LOC: OR 08:47
PROVIDERS: ATTEND Surgery
PROC: 0YUA4JZ Supplement Bilateral Inguinal Region with Synthetic Substitute, Percutaneous Endoscopic Approach (ICD-10-PCS; principal; 2021-11-26 11:15)
DX: K40.20 Bilateral inguinal hernia, without obstruction or gangrene, not specified as recurrent (principal); E78.00 Pure hypercholesterolemia, unspecified; Z20.822 Contact with and (suspected) exposure to COVID-19
CPT/HCPCS: 93005; 71046; 49650; U0003; J2704; J2250; J3010; J1100; J1170; J2710; J7120; J2405; J0690

== ENCOUNTER 2022-09-19 13:44 | Emergency (ER) | payer OTHER ==
--- OUTSIDE RECORDS SUMMARY | 2022-09-19 13:48 | XMS REPORT | Continuity of Care Document ---
:[address] [facility] t Address [address] [place] [address] Care Team Providers Name Role Phone ROBERT BABIN Primary Care Physician Unavailable Robert Babin Attending Clinician Unavailable GIOVANY WALSL Attending Clinician Unavailable Giovany Joyner Attending Clinician ONEAL BOATENG Attending Clinician Unavailable Oneal Silva Attending Clinician ONEAL BOATENG Admitting Clinician Unavailable Payers Payer Name Policy Type Policy Number Effective Date Expiration Date S gael [facility] [id number] 2016 HEALTH CHOICE 00:00:00 [place] [address] [id number] 2016 Common Sp[facility] t Health Choice 00:00:00 - [facility] [place] [address] [id number] 2016 [facility] t Health Choice 00:00:00 - [facility] [place] [address] [id number] 2016 [facility] t Health Choice 00:00:00 - [facility] [place] [address] [id number] 2016 Common Sp[facility] t Health Choice 00:00:[address] [facility] Problems Condition Condition Condition Status Onset Resolution Last Treating Co mments Source Name Details Category Date Date Treatment Clinician Date Left groin Left groin Disease Active U nivers pain pain -14 ity of 00:00: [address] Branch Allergic Allergic Problem Commo n rhinitis rhinitis [facility] Chronic Conjunctiv Problem Comm on allergic itis, Spirit conjunctiv allergic, - C HI itis chronic [facility] [id number] Seasonal Problem Comm on allergic Spirit rhinitis, - [facility] unspecifie [facility] [id number] Mixed Problem Common hyperlipid [facility] emia [facility] No known No known Disease Unive rs active active ity of problems problems [facility] Allergies, Adverse Reactions, Alerts Allergy Allergy Status Severity Reaction(s) Onset Inactive Treating Comm ents Source Name Type Date Date Clinician NO KNOWN Drug Active Univers ALLERGIE Class ity of [facility] Social History Social Habit Start Date Stop Date Quantity Comments Source History of Tobacco Use Co mmon [facility] Sex Assigned At Com mon [facility] Exposure to SARS-CoV-2 [facility] sure [facility] Smoking Status Start Date Stop Date Source Unknown if ever smoked [facility] Never Smoker Common [facility] Medications Ordered Filled Start Stop Current Ordering Indication Dosage Frequency Signature Comments Components Source Medication Medication Date Date Medication? Clinician (SIG) Name Name ibuprofen No 600mg 600 mg, Uni vers (IBU) 08-25 Oral, ity of tablet 600 03:30: 02:50 ONCE, 1 Alexsander as mg 00 :00 dose, On [facility] Fri Branch 08/24/21 at 2130, RAMIRO traMADol traMADol 2021- No 1{table traMADol HCl 50 MG HCl 50 MG 08-15 t} HCl 50 MG 00:00: 00:00 00 :00 traMADol traMADol 2021- No 1{table HCl 50 MG HCl 50 MG 08-15 t} 00:00: 00:00 00 :00 traMADol traMADol 2021- No 1{table traMADol HCl 50 MG HCl 50 MG 1-05 01-15 t} HCl 50 MG 00:00: 00:00 00 :00 Toradol Toradol 2021-0 No 15mg Common (Ketorolac) (Ketorolac) 1-04 S pirit 00:00: - CHI 00 [facility] Toradol Toradol 2021-0 No 15mg Common (Ketorolac) (Ketorolac) 1-04 S pirit 00:00: - CHI 00 [facility] Toradol Toradol 0 No 15mg Common (Ketorolac) (Ketorolac) 1-04 S pirit 00:00: - CHI 00 [facility] traMADoL 2020- 202- No 4647 50mg Take 1 Univer s (ULTRAM) 50 208 12-16 tablet by it y of mg tablet 00:00: 05:59 mouth [place] 00 :00 every 6 Medical (six) Branch hours as needed for Pain (scale 7-10) for up to 7 days. Indication s: acute pain Triamcinolo Triamcinolo 2019-0 Yes Na Babin 1 Common ne ne 6-22 applicatio Spirit Acetonide Acetonide 00:00: n to - C HI 00 affected [facility] Triamcinolo Triamcinolo 2019-0 No 1{appli BID Triamcinol ne ne 6-22 cation_ one Acetonide Acetonide 00:00: to_affe Acetonide 0.1 % 0.1 % 00 cted_ar 0.1 % ea} Triamcinolo Triamcinolo 2020-0 No 1{appli BID Triamcinol ne ne 6-22 cation_ one Acetonide Acetonide 00:00: to_affe Acetonide 0.1 % 0.1 % 00 cted_ar 0.1 % ea} Triamcinolo Triamcinolo 2020-0 No 1{appli BID Triamcinol ne ne 6-22 cation_ one Acetonide Acetonide 00:00: to_affe Acetonide 0.1 % 0.1 % 00 cted_ar 0.1 % ea} Triamcinolo Triamcinolo 2020-0 No 1{appli BID Triamcinol ne ne 6-22 cation_ one Acetonide Acetonide 00:00: to_affe Acetonide 0.1 % 0.1 % 00 cted_ar 0.1 % ea} traMADOL 2016-08 Yes 50mg Take 1 Univers [...] as needed for Pain (scale 4-6). cyclobenzap Yes 10mg Take 1 Univ ers [...] Pain (scale 4-6). Simvastatin Simvastatin Yes Na Babin TAKE ONE Common TABLET BY Spirit MOUTH ONCE - CHI DAILY [facility] Claritin Claritin Yes Na Babin 1 tablet Common Spirit - [facility] Flonase Flonase Yes Na Babin 2 spray in Common each Spirit nostril - CHI [facility] Azelastine Azelastine Yes Na Babin 1 drop Common HCl HCl into Spirit affected - CHI eye [facility] Simvastatin Simvastatin Yes Na Babin TAKE ONE Common TABLET BY Spirit MOUTH ONCE - CHI DAILY [facility] Claritin Claritin Yes Na Babin 1 tablet Common Spirit [facility] Claritin 10 Claritin 10 No 1{table QD Claritin MG MG t} 10 MG Simvastatin Simvastatin No 1{table QD Simvastati 20 MG 20 MG t_in_th n 20 MG e_eveni ng} Loratadine Loratadine No Loratadine 10 MG 10 MG 10 MG Claritin 10 Claritin 10 No 1{table QD MG MG t} Simvastatin Simvastatin No 1{table QD 20 MG 20 MG t_in_th e_eveni ng} Loratadine Loratadine No 10 MG 10 MG Claritin 10 Claritin 10 No 1{table QD Claritin MG MG t} 10 MG Simvastatin Simvastatin No 1{table QD Simvastati 20 MG 20 MG t_in_th n 20 MG e_eveni ng} Loratadine Loratadine No Loratadine 10 MG 10 MG 10 MG Claritin 10 Claritin 10 No 1{table QD Claritin MG MG t} 10 MG Loratadine Loratadine No Loratadine 10 MG 10 MG 10 MG Simvastatin Simvastatin No 1{table QD Simvastati 20 MG 20 MG t_in_th n 20 MG e_eveni ng} Claritin 10 Claritin 10 No 1{table QD Claritin MG MG t} 10 MG Simvastatin Simvastatin No 1{table QD Simvastati 20 MG 20 MG t_in_th n 20 MG e_eveni ng} Loratadine Loratadine No Loratadine 10 MG 10 MG 10 MG Claritin 10 Claritin 10 No 1{table QD Claritin MG MG t} 10 MG Simvastatin Simvastatin No 1{table QD Simvastati 20 MG 20 MG t_in_th n 20 MG e_eveni ng} Loratadine Loratadine No Loratadine 10 MG 10 MG 10 MG Claritin 10 Claritin 10 No 1{table QD Claritin MG MG t} 10 MG Simvastatin Simvastatin No 1{table QD Simvastati 20 MG 20 MG t_in_th n 20 MG e_eveni ng} EQ Allergy EQ Allergy No EQ Allergy Relief 10 Relief 10 Relief 10 MG MG MG Loratadine Loratadine No Loratadine 10 MG 10 MG 10 MG Claritin 10 Claritin 10 No 1{table QD Claritin MG MG t} 10 MG Simvastatin Simvastatin No 1{table QD Simvastati 20 MG 20 MG t_in_th n 20 MG e_eveni ng} EQ Allergy EQ Allergy No EQ Allergy Relief 10 Relief 10 Relief 10 MG MG MG Loratadine Loratadine No Loratadine 10 MG 10 MG 10 MG Flonase 50 Flonase 50 No 2{spray QD Flonase 50 MCG/ACT MCG/ACT _in_eac MCG/ACT h_nostr il} Simvastatin Simvastatin No Simvastati 20 MG 20 MG n 20 MG Azelastine Azelastine No 1{drop_ BID Azelastine HCl 0.05 % HCl 0.05 % into_af HCl 0.05 % fected_ eye} Claritin 10 Claritin 10 No 1{table QD Claritin MG MG t} 10 MG Claritin 10 Claritin 10 No 1{table QD Claritin MG MG t} 10 MG Loratadine Loratadine No Loratadine 10 MG 10 MG 10 MG Flonase 50 Flonase 50 No 2{spray QD Flonase 50 MCG/ACT MCG/ACT _in_eac MCG/ACT h_nostr il} Claritin 10 Claritin 10 No 1{table QD Claritin MG MG t} 10 MG Simvastatin Simvastatin No 1{table QD Simvastati 20 MG 20 MG t_in_th n 20 MG e_eveni ng} Azelastine Azelastine No 1{drop_ BID Azelastine HCl 0.05 % HCl 0.05 % into_af HCl 0.05 % fected_ eye} Claritin 10 Claritin 10 No 1{table QD Claritin MG MG t} 10 MG Loratadine Loratadine No Loratadine 10 MG 10 MG 10 MG Azelastine Azelastine No 1{drop_ BID Azelastine HCl 0.05 % HCl 0.05 % into_af HCl 0.05 % fected_ eye} Claritin 10 Claritin 10 No 1{table QD Claritin MG MG t} 10 MG Loratadine Loratadine No Loratadine 10 MG 10 MG 10 MG Claritin 10 Claritin 10 No 1{table QD Claritin MG MG t} 10 MG Flonase 50 Flonase 50 No 2{spray QD Flonase 50 MCG/ACT MCG/ACT _in_eac MCG/ACT h_nostr il} Simvastatin Simvastatin No 1{table QD Simvastati 20 MG 20 MG t_in_th n 20 MG e_eveni ng} Claritin 10 Claritin 10 No 1{table QD Claritin MG MG t} 10 MG Flonase 50 Flonase 50 No 2{spray QD Flonase 50 MCG/ACT MCG/ACT _in_eac MCG/ACT h_nostr il} Azelastine Azelastine No 1{drop_ BID Azelastine HCl 0.05 % HCl 0.05 % into_af HCl 0.05 % fected_ eye} Simvastatin Simvastatin No 1{table QD Simvastati 20 MG 20 MG t_in_th n 20 MG e_eveni ng} Loratadine Loratadine No Loratadine 10 MG 10 MG 10 MG Claritin 10 Claritin 10 No 1{table QD Claritin MG MG t} 10 MG Immunizations Ordered Immunization Filled Immunization Date Status Commen ts Source Name Name Erika James 2021-06-08 Completed [facility] 16:36:00 [facility] Eugeniauria Eugeniauria 2021-06-08 Completed [facility] 16:36:00 [facility] Eugeniauria Eugeniauria 2021-06-08 Completed [facility] 16:36:00 [facility] Eugeniauria Eugeniauria 2021-06-08 Completed [facility] 16:36:00 [facility] Afluria Eugeniauria 2021-06-08 Completed [facility] 16:36:00 [facility] Eugeniauria Eugeniauria 2021-06-08 Completed [facility] 16:36:00 [facility] Eugeniauria Eugeniauria 2021-06-08 Completed [facility] 16:36:00 - [facility] Eugeniauria Eugeniauria 2021-06-08 Completed [facility] 16:36:00 - [facility] Eugeniauria Eugeniauria 2021-06-08 Completed [facility] 16:36:00 [facility] Moderna COVID-19 Moderna COVID-19 2021-02-16 Completed Co mmon Spirit Vaccine Vaccine 15:12:00 [facility] Moderna COVID-19 Moderna COVID-19 2021-02-16 Completed Co mmon Spirit Vaccine Vaccine 15:12:00 [facility] Moderna COVID-19 Moderna COVID-19 2021-02-16 Completed Co mmon Spirit Vaccine Vaccine 15:12:00 [facility] Moderna COVID-19 Moderna COVID-19 2021-02-16 Completed Co mmon Spirit Vaccine Vaccine 15:12:00 [facility] Moderna COVID-19 Moderna COVID-19 2021-02-16 Completed Co mmon [facility] Vaccine Vaccine 15:12:00 [facility] Moderna COVID-19 Moderna COVID-19 2021-02-16 Completed Co mmon Spirit Vaccine Vaccine 15:12:00 [facility] Moderna COVID-19 Moderna COVID-19 2021-02-16 Completed Co mmon Spirit Vaccine Vaccine 15:12:00 - [facility] Moderna COVID-19 Moderna COVID-19 2021-02-16 Completed Co mmon Spirit Vaccine Vaccine 15:12:00 - [facility] Moderna COVID-19 Moderna COVID-19 2021-02-16 Completed Co mmon Spirit Vaccine Vaccine 15:12:00 [facility] Moderna COVID-19 Moderna COVID-19 2021-02-16 Completed Co mmon Spirit Vaccine Vaccine 15:12:00 [facility] Afluria single dose Afluria single dose 2019-04-26 Completed Common [facility] 17:03:00 [facility] Afluria single dose Afluria single dose 2019-04-26 Completed [facility] 17:03:00 [facility] Afluria single dose Afluria single dose 2019-04-26 Completed Common [facility] 17:03:00 [facility] Afluria single dose Afluria single dose 2019-04-26 Completed [facility] 17:03:00 [facility] Afluria single dose Afluria single dose 2019-04-26 Completed Common [facility] 17:03:00 [facility] Afluria single dose Afluria single dose 2019-04-26 Completed Common [facility] 17:03:00 [facility] Afluria single dose Afluria single dose 2019-04-26 Completed Common [facility] 17:03:00 [facility] Afluria single dose Afluria single dose 2019-04-26 Completed Common [facility] 17:03:00 [facility] Afluria single dose Afluria single dose 2019-04-26 Completed [facility] 17:03:00 [facility] Afluria single dose Afluria single dose 2019-04-26 Completed [facility] 17:03:00 [facility] Afluria single dose Afluria single dose 2019-04-26 Completed [facility] 17:03:00 - [facility] Afluria single dose Afluria single dose 2019-04-26 Completed [facility] 17:03:00 - [facility] Afluria single dose Afluria single dose 2019-04-26 Completed Common [facility] 00:00:00 - [facility] Vital Signs Vital Name Observation Time Observation Value Comments Source height 2021-09-10 15:40:00 66.00 [in_i] [facility] weight 2021-09-10 15:40:00 185 [lb_av] [facility] bmi 2021-09-10 15:40:00 29.86 kg/m2 [facility] Heart rate 2021-08-25 02:43:00 97 /min [facility] Oxygen saturation in 2021-08-25 02:43:00 99 /min [facility] Arterial blood by [facility] Pulse oximetry Branch Systolic blood 2021-08-25 02:31:00 137 mm[Hg] Univer sity [facility] Diastolic blood 2021-08-25 02:31:00 89 mm[Hg] Unive [facility] Body temperature 2021-08-25 02:08:00 37.28 [facility] Respiratory rate 2021-08-25 02:08:00 18 /min [facility] Body height 2021-08-25 02:08:00 167.6 cm [facility] Body weight 2021-08-25 02:08:00 83.008 kg [facility] BMI 2021-08-25 02:08:00 29.54 kg/m2 [facility] height 2021-08-14 16:00:00 66.00 [in_i] [facility] weight 2021-08-14 16:00:00 183 [lb_av] [facility] temperature 2021-08-14 16:00:00 98.2 [degF] [facility] bmi 2021-08-14 16:00:00 29.53 kg/m2 [facility] oximetry 2021-08-14 16:00:00 95 % Common [facility] respiratory rate 2021-08-14 16:00:00 18 /min Comm on [facility] blood pressure 2021-08-14 16:00:00 130 mm[Hg] Common [facility] - systolic [facility] blood pressure 2021-08-14 16:00:00 74 mm[Hg] Common [facility] - diastolic [facility] Systolic blood 2021-07-19 00:31:00 156 mm[Hg] Univer [facility] Diastolic blood 2021-07-19 00:31:00 100 mm[Hg] Unive rsity [facility] Heart rate 2021-07-19 00:31:00 104 /min [facility] Body temperature 2021-07-19 00:31:00 36.72 [facility] Res[facility] rate 2021-07-19 00:31:00 18 /min [facility] Body height 2021-07-19 00:31:00 165.1 cm [facility] Body weight 2021-07-19 00:31:00 80.74 kg [facility] BMI 2021-07-19 00:31:00 29.62 kg/m2 [facility] Oxygen saturation in 2021-07-19 00:31:00 99 /min [facility] Arterial blood by [facility] Pulse oximetry Branch height 2021-02-08 16:20:00 66.00 [in_i] [facility] weight 2021-02-08 16:20:00 182.0 [lb_av] Common [facility] temperature 2021-02-08 16:20:00 97.9 [degF] [facility] bmi 2021-02-08 16:20:00 29.37 kg/m2 [facility] oximetry 2021-02-08 16:20:00 96 % [facility] respiratory rate 2021-02-08 16:20:00 15 /min Comm on [facility] blood pressure 2021-02-08 16:20:00 126 mm[Hg] Common [facility] systolic [facility] blood pressure 2021-02-08 16:20:00 81 mm[Hg] [facility] diastolic [facility] height 2020-11-09 16:00:00 66.00 [in_i] [facility] weight 2020-11-09 16:00:00 181.2 [lb_av] [facility] temperature 2020-11-09 16:00:00 97.6 [degF] [facility] bmi 2020-11-09 16:00:00 29.24 kg/m2 [facility] oximetry 2020-11-09 16:00:00 95 % [facility] respiratory rate 2020-11-09 16:00:00 15 /min Comm on [facility] blood pressure 2020-11-09 16:00:00 129 mm[Hg] [facility] systolic [facility] blood pressure 2020-11-09 16:00:00 80 mm[Hg] [facility] diastolic [facility] Procedures Procedure Date / Time Performed Performing Clinician Sour e CONSENT/REFUSAL FOR 2021-08-25 02:00:55 [facility] TREATMENT XR FEMUR 2 VW LEFT 2021-07-19 01:10:42 Oneal Boateng [facility] XR PELVIS <3 VW 2021-07-19 01:10:42 Oneal Boateng [facility] CONSENT/REFUSAL FOR 2021-07-19 00:20:10 Doctor Unassigned, [facility] AND Name Medical Branch TREATMENT Encounters Start End Encounter Admission Attending Care Care Encounter Source Date/Time Date/Time Type Type Clinicians Facility Department ID 2022-07-12 Out[facility] [id number] 2 Common 10:02:00 [facility] 2022-07-11 Outpatient Babin, Na STLMLC STLMLC [id number] 2 Common 10:40:00 [facility] 2021-12-25 Outpatient Babin, Na STLMLC STLMLC [id number] 2 Common 15:17:32 [facility] 2021-09-11 Outpatient Babin, Na STLMLC STLMLC [id number] 2 Common 09:22:01 [facility] 2021-09-05 Outpatient Babin, Na STLMLC STLMLC [id number] 2 Common 14:38:51 [facility] 2021-09-05 Outpatient Babin, Na STLMLC STLMLC [id number] 2 Common 14:30:53 [facility] 2021-09-05 Outpatient Babin, Na STLMLC STLMLC [id number] 2 Common 14:30:06 [facility] 2021-09-05 Outpatient Babin, Na STLMLC STLMLC [id number] 2 Common 13:47:07 [id number] [facility] 2021-09-05 Outpatient Babin, Na STLMLC STLMLC [id number] 2 Common 13:21:01 [id number] [facility] 2021-09-05 Outpatient Babin, Na STLMLC STLMLC [id number] 2 Common 12:47:23 [id number] [facility] 2021-09-05 Outpatient Babin, Na STLMLC STLMLC [id number] 2 Common 12:46:31 [id number] [facility] 2021-09-05 Outpatient Babin, Na STLMLC STLMLC [id number] 2 Common 11:27:28 [id number] [facility] 2021-09-05 Outpatient Babin, Na STLMLC STLMLC [id number] 2 Common 11:17:23 [id number] [facility] 2022-07-30 2022-07-30 (TEL) STLMLC STLMLC [id number] Co mmon 00:00:00 00:00:00 [facility] 2022-07-16 2022-07-16 OFFICE STLMLC STLMLC [id number] Co mmon 00:00:00 00:00:00 VISIT EST Spir it PT LEVEL 3 - [facility] 2021-09-24 2021-09-24 (TEL) STLMLC STLMLC [id number] Co mmon 00:00:00 00:00:00 [facility] 2021-09-10 2021-09-10 OFFICE STLMLC STLMLC [id number] Co mmon 00:00:00 00:00:00 VISIT EST Spir it PT LEVEL 3 - [facility] 2021-08-27 2021-08-27 (TEL) STLMLC STLMLC [id number] Co mmon 00:00:00 00:00:00 [facility] 2021-08-24 2021-08-24 Emergency X RIDDLE, [facility] ERT [id number] Univers 20:10:00 22:00:00 GIOVANY cheung [facility] 2021-08-24 2021-08-24 [facility] [id number] Univers 20:10:00 22:00:00 [id number] [id number] [facility] [phone] [place] [address] Branch 2021-08-24 2021-08-24 (TEL) STLMLC STLMLC [id number] Co mmon 00:00:00 00:00:00 [facility] 2021-08-15 2021-08-15 (TEL) STLMLC STLMLC [id number] Co mmon 00:00:00 00:00:00 [facility] 2021-08-14 2021-08-14 OFFICE STLMLC STLMLC [id number] Co mmon 00:00:00 00:00:00 VISIT Spirit ESTAB PT - CHI LEVEL 4 [facility] 2021-07-18 2021-07-18 Emergency X VIOLETA, [facility] ERT [id number] Univers 18:33:00 22:13:00 ONEAL ity of [facility] 2021-07-18 2021-07-18 Emergency Violeta, [facility] [id number] [facility] 18:33:00 22:13:00 Oneal ESCOTO [id number] i ty mj ZAMORA [id number] [facility] [id number] [place] [address] Branch 2021-06-08 2021-06-08 (INJ) STLMLC STLMLC [id number] Co mmon 00:00:00 00:00:00 Injection Spir it - [facility] 2021-02-16 2021-02-16 (COVID STLMLC STLMLC [id number] Co mmon 00:00:00 00:00:00 Inj) COVID Spi rit Injection - [facility] 2021-02-08 2021-02-08 OFFICE STLMLC STLMLC [id number] Co mmon 00:00:00 00:00:00 VISIT EST Spir it PT LEVEL 3 - [facility] 2020-11-09 2020-11-09 PREV VISIT STLMLC STLMLC [id number] Common 00:00:00 00:00:00 EST AGE Spirit 40-64 - [facility] 2020-02-01 2020-02-01 [facility] [id number] Common 22:23:00 22:23:[address] Spir [address] [facility] 2020-01-31 2020-01-31 [facility] [id number] Common 16:20:00 16:20:[address] Spir [address] [facility] 2020-01-31 2020-01-31 [facility] [id number] Common 15:16:00 15:16:[address] Spir [address] [facility] 2019-07-27 2019-07-27 [facility]patient [facility] [id number] Common 15:20:00 15:20:[address] Spir [address] [facility] 2019-04-26 2019-04-26 [facility] [id number] Common 15:20:00 15:20:00 t [facility] it Drive [facility] 2018-11-04 2018-11-04 Outpatient Timi Peter 24 [id number] Common 15:15:00 15:15:00 t [employer] [facility] it Drive [facility] Results Test Description Test Time Test Comments Results Result Comments Source Femur Left Femur Left Hip Left 2 View Hip Left 2 View
[2022-09-19] MEDS ORDERED: IBUPROFEN 400 MG TAB ONE (14:36)
[2022-09-19] MEDS ORDERED: HYDROCODONE/APAP 7.5/325 MG TAB ONE (14:36)
--- NOTE | 2022-09-19 15:03 | RAD REPORT ---
EXAM DESCRIPTION: RAD - Foot Left 3 View - 09/19/2022 2:27 pm CLINICAL HISTORY: PAIN COMPARISON: No comparisons FINDINGS: No fracture or dislocation is seen. Small calcaneal spurs.
--- NOTE | 2022-09-19 15:04 | RAD REPORT ---
EXAM DESCRIPTION: RAD - Ankle Left 3 View - 09/19/2022 2:27 pm CLINICAL HISTORY: PAIN COMPARISON: No comparisons FINDINGS: Small calcaneal spurs. No acute fracture or dislocation.
--- NOTE | 2022-09-19 15:18 | ER ---
Nurse's Notes [facility] Name: Gavin Hernandez Age: 51 yrs Sex: Male : 1970 Arrival Date: 09/19/2022 Time: 13:46 Bed Treatment Private MD: Isaiah Edwards Diagnosis: Sprain of unspecified ligament of left ankle, initial encounter;Unspecified sprain of left foot, initial encounter Presentation: 09/19 13:50 Chief complaint: Patient states: "I fell from a scaffold about 5 feet". Pt c/o pain to aa5 left ankle and left foot. Coronavirus screen: At this time, the client does not indicate any symptoms associated with coronavirus-19. Ebola Screen: Patient denies travel to an Ebola-affected area in the 21 days before illness onset. Initial Sepsis Screen: Does the patient meet any 2 criteria? No. Patient's initial sepsis screen is negative. Does the patient have a suspected source of infection? No. Patient's initial sepsis screen is negative. Risk Assessment: Do you want to hurt yourself or someone else? Patient reports no desire to harm self or others. Onset of symptoms was September 19, 2022 at 12:50. 13:50 Method Of Arrival: Ambulatory aa5 13:50 Acuity: CHRISTINA 4 aa5 Triage Assessment: 14:00 General: Appears in no apparent distress. uncomfortable, Behavior is calm, cooperative, kr3 appropriate for age. 15:56 Pain: Complains of pain in left lateral ankle, lateral aspect of left foot, left kr3 Achilles and left medial ankle. Historical: - Allergies: 13:51 No Known Allergies; aa5 - PMHx: 13:51 Hyperlipidemia; aa5 - PSHx: 13:51 hernia; aa5 - Immunization history:: Adult Immunizations unknown. - Social history:: Smoking status: Patient denies any tobacco usage or history of. Screenin:55 [facility] ED Fall Risk Assessment (Adult) History of falling in the last 3 months, kr3 including since admission No falls in past 3 months (0 pts) Confusion or Disorientation No (0 pts) Intoxicated or Sedated No (0 pts) Impaired Gait No (0 pts) Mobility Assist Device Used No (0 pt) Altered Elimination No (0 pt) Score/Fall Risk Level 0 - 2 = Low Risk Oriented to surroundings, Maintained a safe environment, Assessed \\T\\ reinforced patient's understanding of fall precautions, Hourly rounding (assess needs \\T\\ fall precautionary measures) done. Abuse screen: Denies threats or abuse. Nutritional screening: No deficits noted. Tuberculosis screening: No symptoms or risk factors identified. Assessment: 15:18 Reassessment: Patient appears in no apparent distress at this time. Patient and/or kr3 family updated on plan of care and expected duration. Pain level reassessed. Patient is alert, oriented x 3, equal unlabored respirations, skin warm/dry/pink. Vital Signs: 13:50 BP 137 / 91; Pulse 90; Resp 16 S; Temp 98.2(TE); Pulse Ox 96% on R/A; Weight 84.82 kg aa5 (R); Height 5 ft. 7 in. (170.18 cm) (R); 15:17 BP 153 / 84; Pulse 90; Resp 18; Pulse Ox 99% on R/A; kr3 13:50 Body Mass Index 29.29 (84.82 kg, 170.18 cm) aa5 ED Course: 13:46 Patient arrived in ED. as 13:46 Isaiah Edwards MD is Private Physician. as 13:51 [facility]. cp 13:51 Brayan Villanueva MD is Attending Physician. cp 13:51 Triage completed. aa5 13:51 Arm band placed on. aa5 14:00 Call light in reach. kr3 14:08 Leatha López, RN is Primary Nurse. kr3 14:29 XRAY Foot LEFT 3 View In Process Unspecified. EDMS 14:29 XRAY Ankle LEFT 3 view In Process Unspecified. EDMS 15:15 Randy Retana MD is Referral Physician. cp 15:56 No provider procedures requiring assistance completed. Patient did not have IV access kr3 during this emergency room visit. Administered Medications: 14:34 Drug: Ibuprofen 800 mg Route: PO; kr3 14:34 Drug: Hydrocodone-Acetaminophen (7.5 mg-325 mg) 1 tabs Route: PO; kr3 15:57 Follow up: Response: No adverse reaction; RASS: Alert and Calm (0) kr3 Medication: 15:57 VIS not applicable for this client. kr3 Outcome: 15:17 Discharge ordered by . cp 15:56 Discharged to home ambulatory, with crutches. kr3 15:56 Condition: stable 15:56 Discharge instructions given to patient, family, Instructed on discharge instructions, follow up and referral plans. medication usage, Demonstrated understanding of instructions, follow-up care, medications, Prescriptions given X 1. 15:58 Patient left the ED. kr3 Signatures: Dispatcher [employer] EDReba Mccabe Audri, RN RN aa5 Shekhar Daugherty PA PA cp Reid, Kelley RN RN kr3
--- NOTE | 2022-09-19 15:18 | EDPHYS ---
Physician Documentation [facility] Name: Gavin Hernandez Age: 51 yrs Sex: Male : 1970 Arrival Date: 09/19/2022 Time: 13:46 Bed Treatment Private MD: Isaiah Edwards ED Physician Brayan Villanueva HPI: 09/19 14:10 This 51 yrs old Male presents to ER via Ambulatory with complaints of Foot cp Injury. 14:10 The patient presents with an injury, pain, that is acute. The complaints affect the cp left lateral ankle, anterior aspect of left ankle and dorsum of left foot. 14:10 Context: resulted from fall while standing on scaffold. cp 14:10 Onset: The symptoms/episode began/occurred just prior to arrival. Associated signs and cp symptoms: The patient has no apparent associated signs or symptoms. Historical: - Allergies: 13:51 No Known Allergies; aa5 - PMHx: 13:51 Hyperlipidemia; aa5 - PSHx: 13:51 hernia; aa5 - Immunization history:: Adult Immunizations unknown. - Social history:: Smoking status: Patient denies any tobacco usage or history of. ROS: 14:15 Eyes: Negative for injury, pain, redness, and discharge. cp 14:15 Constitutional: Negative for body aches, chills, fever, poor PO intake. 14:15 ENT: Negative for drainage from ear(s), ear pain, sore throat, difficulty swallowing, difficulty handling secretions. 14:15 Cardiovascular: Negative for chest pain, edema, palpitations. 14:15 Respiratory: Negative for cough, shortness of breath, wheezing. 14:15 MS/extremity: Positive for pain, paresthesias, swelling, tenderness, of the lateral cp aspect of left foot and dorsum of left foot and left lateral ankle, Negative for deformity. 14:15 Back: Negative for pain at rest, pain with movement. cp 14:15 All other systems are negative. Exam: 14:20 Constitutional: The patient appears in no acute distress, alert, awake, non-toxic, well cp developed, well nourished, uncomfortable. 14:20 Head/Face: Normocephalic, atraumatic. cp 14:20 Eyes: Periorbital structures: appear normal, Sclera: no appreciated abnormality, Lids cp and lashes: appear normal, bilaterally. 14:20 ENT: External ear(s): are unremarkable, Nose: is normal, Mouth: Lips: moist, Oral mucosa: moist, Posterior pharynx: is normal, airway is patent, no erythema, no exudate. 14:20 Neck: ROM/movement: is normal, is supple, without pain, no range of motions limitations. 14:20 Chest/axilla: Inspection: normal. 14:20 Cardiovascular: Rate: normal. 14:20 Respiratory: the patient does not display signs of respiratory distress, Respirations: normal, no use of accessory muscles, no retractions, labored breathing, is not present. 14:20 Abdomen/GI: Inspection: abdomen appears normal. cp 14:20 Back: pain, is absent, ROM is normal. 14:20 Musculoskeletal/extremity: Extremities: noted in the lateral aspect of left foot and dorsum of left foot and left lateral ankle: pain, swelling, tenderness, There is no evidence of decreased ROM, deformity. 14:20 Neuro: Sensation: numbness, that is mild, of the dorsum of left foot. Vital Signs: 13:50 BP 137 / 91; Pulse 90; Resp 16 S; Temp 98.2(TE); Pulse Ox 96% on R/A; Weight 84.82 kg aa5 (R); Height 5 ft. 7 in. (170.18 cm) (R); 15:17 BP 153 / 84; Pulse 90; Resp 18; Pulse Ox 99% on R/A; kr3 13:50 Body Mass Index 29.29 (84.82 kg, 170.18 cm) aa5 Procedures: 15:30 Splinting: Splint applied to left ankle and left foot using walking boot. applied by cp nurse. Examined by me, post splint application: neurovascular intact, Patient tolerated well. MDM: 13:55 Patient medically screened. cp 15:16 Data reviewed: vital signs, nurses notes, radiologic studies, plain films. cp 15:16 Differential diagnosis: dislocation, closed fracture, sprain. Independent cp interpretation of the following test(s) in the Emergency Department X-Ray: My interpretation is xrays of left ankle and left foot negative for acute fracture. Test considered but Not performed: CT: lower extremity. Counseling: I had a detailed discussion with the patient and/or guardian regarding: the historical points, exam findings, and any diagnostic results supporting the discharge/admit diagnosis, radiology results, the need for outpatient follow up, a orthopedic surgeon, to return to the emergency department if symptoms worsen or persist or if there are any questions or concerns that arise at home. Response to treatment: the patient's symptoms have markedly improved after treatment, and as a result, I will discharge patient. 09/19 14:04 Order name: XRAY Foot LEFT 3 View; Complete Time: 15:06 cp 09/19 15:06 Interpretation: Reviewed report. cp 09/19 14:04 Order name: XRAY Ankle LEFT 3 view; Complete Time: 15:06 cp 09/19 15:06 Interpretation: Report reviewed. cp 09/19 15:07 Order name: Walking boot; Complete Time: 15:55 cp Administered Medications: 14:34 Drug: Ibuprofen 800 mg Route: PO; kr3 14:34 Drug: Hydrocodone-Acetaminophen (7.5 mg-325 mg) 1 tabs Route: PO; kr3 15:57 Follow up: Response: No adverse reaction; RASS: Alert and Calm (0) kr3 Disposition: 17:48 Co-signature as Attending Physician, Brayan Villanueva MD I reviewed the patient's care rt provided by the Advanced Practice Provider and agree with the diagnosis and treatment plan. Disposition Summary: 09/19/22 15:17 Discharge Ordered Location: Home cp Problem: new cp Symptoms: have improved cp Condition: Stable cp Diagnosis - Sprain of unspecified ligament of left ankle, initial encounter cp - Unspecified sprain of left foot, initial encounter cp Followup: cp - With: Randy Retana MD - When: 5 - 6 days - Reason: Recheck today's complaints Discharge Instructions: - Discharge Summary Sheet cp - Ankle Sprain cp - Foot Sprain cp Forms: - Medication Reconciliation Form cp - Thank You Letter cp - Antibiotic Education cp - Prescription Opioid Use cp Prescriptions: - Diclofenac Sodium 75 mg Oral tablet,delayed release (DR/EC) - take 1 tablet by ORAL route 2 times per day; 20 tablet; Refills: 0, Product cp Selection Permitted Signatures: Dispatcher [employer] Mabel Amos RN RN aa5 Shekhar Daugherty PA PA cp Leatha López RN RN kr3 Brayan Villanueva MD MD rt Corrections: (The following items were deleted from the chart) 15:14 08 14:15 Constitutional: Negative for body aches, chills, fever, poor PO intake, cp cp 09/19 15:09/18 14:15 Eyes: Negative for injury, pain, redness, and discharge, cp cp 09/19 14:09/18 14:15 ENT: Negative for drainage from ear(s), ear pain, sore throat, difficulty cp swallowing, difficulty handling secretions, cp 09/19 14:09/18 14: Cardiovascular: Negative for chest pain, edema, palpitations, cp cp 09/19 14:09/18 14:15 Respiratory: Negative for cough, shortness of breath, wheezing, cp cp
[2022-09-19 16:51] VITALS: TEMP 98.2
[2022-09-19 16:53] VITALS: BP 153/84; O2SAT 99
== END 2022-09-19 15:58 | disposition home or self-care (01) ==
LOC: ER 13:44
DX: S93.402A Sprain of unspecified ligament of left ankle, initial encounter (principal); S93.602A Unspecified sprain of left foot, initial encounter; E78.5 Hyperlipidemia, unspecified
CPT/HCPCS: 99283